=== PATIENT | male | born 1980 | race Caucasian/White ===

== ENCOUNTER 2018-10-30 12:28 | Observation (INO) | payer OTHER ==
[~2018-10-30] VITALS: Ht 182.9 cm; Wt 90.5 kg
[2018-10-30] VITALS (323 sets, daily range): BP systolic 108–160; BP diastolic 53–97; PULSE 52–67; TEMP 97.4–98.2; O2SAT 91–100
[2018-10-30 13:01] LABS: HEMATOCRIT 43.1 % (42.0-52.0); HEMOGLOBIN 14.9 g/dl (13.5-18.0); MEAN CELL VOLUME 80 fl (80.0-100.0); MEAN CORPUSCULAR HEMOGLOBIN 28 pg (27.0-31.0); MEAN CORPUSCULAR HGB CONC 35 g/dl (33.0-37.0); MEAN PLATELET VOLUME 9.6 fl (7.4-10.4); PLATELET COUNT 273 K/mm3 (130-400); RED BLOOD COUNT 5.36 M/mm3 (4.20-5.60)
[2018-10-30 13:10] LABS: CHOLESTEROL RISK RATIO 7.2; MAGNESIUM 2.2 mg/dL (1.6-2.3)
[2018-10-30 13:11] LABS: ALBUMIN 4.4 gm/dL (3.5-5.0); BILIRUBIN,TOTAL 0.6 mg/dL (0.0-1.0); CALCIUM 9.1 mg/dL (8.4-10.2); CREATININE, serum 0.96 mg/dL (0.66-1.25); TOTAL PROTEIN 7.5 gm/dL (6.4-8.2)
[2018-10-30] MEDS ORDERED: RANEXA 500MG T500 MG PO (13:14)
[2018-10-30] MEDS ORDERED: CRESTOR5 MG PO (13:14)
[2018-10-30] MEDS ORDERED: ASPIRIN 81M81 MG/TA2 PO ×2 (13:14→18:40)
[2018-10-30] MEDS ORDERED: PROTONIX20 MG PO (13:14)
[2018-10-30] MEDS ORDERED: THE MEDICINE S200 M2 PO (13:15)
[2018-10-30] MEDS ORDERED: TOPROL XL 50MG50 MG PO (13:15)
[2018-10-30] MEDS ORDERED: REPATHA SU140 MG/1 M SQ (13:23)
[2018-10-30] MEDS ORDERED: PLAVIX 75MG TAB75 MG PO (13:33)
[2018-10-30 13:49] LABS: INR 1.1 (0.8-3.0); PROTHROMBIN TIME 12.4 SECONDS (9.7-12.8)
[2018-10-31] VITALS (720 sets, daily range): BP systolic 116–146; BP diastolic 70–90; PULSE 48–65; TEMP 9.7; O2SAT 92–99
[2018-10-31 05:44] LABS: BASO % 0.4 % (0.0-2.0); EOS # 0.2 (0.0-0.7); GRAN # 5.2 (1.4-6.5); GRAN % 62.2 % (42.2-75.2); HEMATOCRIT 40.9 % (42.0-52.0); HEMOGLOBIN 14.1 g/dl (13.5-18.0); LYMPH # 2.2 (1.2-3.4); LYMPH % 26.6 % (20.0-51.0); MEAN CELL VOLUME 80 fl (80.0-100.0); MEAN CORPUSCULAR HEMOGLOBIN 28 pg (27.0-31.0); MEAN CORPUSCULAR HGB CONC 35 g/dl (33.0-37.0); MEAN PLATELET VOLUME 9.5 fl (7.4-10.4); MONO # 0.7 (0.1-0.6); MONO % 8.6 % (1.7-9.3); PLATELET COUNT 261 K/mm3 (130-400); RED BLOOD COUNT 5.11 M/mm3 (4.20-5.60); REDCELL DISTRIBUTION WIDTH-CV 12.8 % (11.5-14.5)
[2018-10-31 05:54] LABS: CALCIUM 8.5 mg/dL (8.4-10.2); CREATININE, serum 0.85 mg/dL (0.66-1.25); POTASSIUM 4.1 mmol/L (3.4-5.0)
[2018-10-31] MEDS ORDERED: NITROSTAT0.4 MG/TAB SL (12:29)
[2018-10-31] MEDS ORDERED: Patient's Own Medica PO (12:31)
[2018-10-31] MEDS ORDERED: CRESTOR20 MG PO (12:31)
== END 2018-10-31 20:24 | disposition home or self-care (01) ==
LOC: COL.CAR 12:28 → ICU 18:12 → COL.CAR 18:13 → ICU 18:14
PROVIDERS: Internal Medicine Cardiovascular Disease
DX: I25.118 Atherosclerotic heart disease of native coronary artery with other forms of angina pectoris (principal); E78.5 Hyperlipidemia, unspecified; Z79.82 Long term (current) use of aspirin; Z95.5 Presence of coronary angioplasty implant and graft; Z82.49 Family history of ischemic heart disease and other diseases of the circulatory system
CPT/HCPCS: C9600; J0583; J1200; J1644; J2250; J2405; J3010; J7030; Q9967